=== PATIENT | female | born 1965 | race African-American/Black ===

== ENCOUNTER 2018-01-31 12:54 | Emergency (ER) | payer OTHER, MEDICAID ==
[~2018-01-31] VITALS: Ht 157.5 cm; Wt 64.0 kg
[2018-01-31 16:59] LABS: BASOPHILS % 0.3 % (0.0-2.0); EOSINOPHILS % 1.1 % (0.0-5.0); HEMATOCRIT. 43.2 % (36.0-48.0); HEMOGLOBIN. 14.7 g/dL (12.0-16.0); LYMPHOCYTES % 39.3 % (20.0-50.0); MEAN CORPUSCULAR HEMOGLOBIN 29.8 pg (28.0-32.0); MEAN CORPUSCULAR VOLUME 87.8 fL (81.0-99.0); MEAN PLATELET VOLUME 11.3 fl (7.4-10.4); MONOCYTES % 6.9 % (2.0-8.0); NEUTROPHILS % 52.4 % (40.0-76.0); PLATELET 126 x1000/uL (130-400); RED BLOOD CELL COUNT 4.92 mill/uL (4.2-5.4); RED CELL DISTRIBUTION WIDTH 13.1 % (11.6-14.6)
[2018-01-31 17:01] LABS: CHLORIDE 104 mEq/L (98-107)
[2018-01-31 18:35] VITALS: BP 160/81
== END 2018-01-31 18:37 | disposition home or self-care (01) ==
LOC: ER 12:54
DX: R51 Headache (principal); I10 Essential (primary) hypertension; F17.200 Nicotine dependence, unspecified, uncomplicated
CPT/HCPCS: 36415; 70450; 71045; 80053; 83690; 84443; 84484; 85025; 99285

== ENCOUNTER 2021-08-05 09:24 | Emergency (ER) | payer MEDICAID, OTHER ==
[~2021-08-05] VITALS: Ht 157.5 cm; Wt 66.0 kg
[2021-08-05] MEDS ORDERED: ONDANSETRON HCL 4MG/2ML INJ IV STA (09:58)
[2021-08-05] MEDS ORDERED: KETOROLAC 30MG/ML VIAL IV STA (09:58)
[2021-08-05] MEDS ORDERED: SODIUM CHLORIDE 0.9% 1,000 ML IV ONE (10:00)
[2021-08-05 11:02] LABS: CLARITY URINE CLEAR (CLEAR); COLOR URINE YELLOW (YELLOW); KETONES URINE NEGATIVE (NEGATIVE); LEUKOCYTE ESTERASE URINE NEGATIVE (NEGATIVE); NITRITE URINE NEGATIVE (NEGATIVE); OCCULT BLOOD URINE NEGATIVE (NEGATIVE); PROTEIN URINE NEGATIVE (NEGATIVE); SPECIFIC GRAVITY URINE 1.006 (1.005-1.030); UROBILINOGEN URINE 0.2 E.U./dL (0.2-1.0)
[2021-08-05 11:03] LABS: BASOPHILS % 0.2 % (0.0-2.0); EOSINOPHILS % 0.4 % (0.0-5.0); HEMATOCRIT. 38.5 % (36.0-48.0); HEMOGLOBIN. 13.3 g/dL (12.0-16.0); LYMPHOCYTES % 14.7 % (20.0-50.0); MEAN CORPUSCULAR HEMOGLOBIN 29.6 pg (28.0-32.0); MEAN PLATELET VOLUME 10.9 fl (7.4-10.4); MONOCYTES % 6.7 % (2.0-8.0); PLATELET 125 x1000/uL (130-400); RED BLOOD CELL COUNT 4.48 mill/uL (4.2-5.4); RED CELL DISTRIBUTION WIDTH 12.6 % (11.6-14.6)
[2021-08-05 11:08] LABS: CHLORIDE 107 mEq/L (98-107)
[2021-08-05 12:00] VITALS: BP 132/68
[2021-08-05] MEDS ORDERED: AMPICILLIN SOD/SULBACTAM NA 3 G in SODIUM CHLORIDE 0.9% 100 ML IV STA (12:15)
[2021-08-05] MEDS ORDERED: HYDR-4001 MT (12:33)
[2021-08-05] MEDS ORDERED: AMOX-424 MT (12:33)
[2021-08-05] MEDS ORDERED: IBUP-2028 MT (12:33)
== END 2021-08-05 14:51 | disposition home or self-care (01) ==
LOC: ER 09:24
DX: K57.32 Diverticulitis of large intestine without perforation or abscess without bleeding (principal); D25.9 Leiomyoma of uterus, unspecified; R03.0 Elevated blood-pressure reading, without diagnosis of hypertension
CPT/HCPCS: 36415; 74176; 80053; 81003; 83690; 85025; 96361; 96365; 96375; 99284; J0295; J1885; J2405; J7030; J7050

== ENCOUNTER 2022-12-21 13:36 | Emergency (ER) | payer OTHER ==
[~2022-12-21] VITALS: Ht 157.5 cm; Wt 61.0 kg
[~2022-12-21 13:36] MED LIST: AMOX-424 MT; HYDR-4001 MT; IBUP-2028 MT
[2022-12-21 13:55] VITALS: BP 148/73; PULSE 92; RESP 20; TEMP 98.6; O2SAT 100
[2022-12-21] MEDS ORDERED: KETOROLAC 60MG/2ML VIAL IM STA (15:12)
[2022-12-21] MEDS ORDERED: CEPH500C2 MT (16:45)
[2022-12-21] MEDS ORDERED: CIPR1DRO2 LEFT EAR (16:45)
[2022-12-21] MEDS ORDERED: NAPR-681 PO (16:45)
== END 2022-12-21 17:03 | disposition home or self-care (01) ==
LOC: ER 14:03
DX: H60.92 Unspecified otitis externa, left ear (principal); M75.02 Adhesive capsulitis of left shoulder
CPT/HCPCS: 99283; 73030; 96372; J1885

== ENCOUNTER 2024-08-28 12:56 | Emergency (ER) | payer MEDICAID ==
[~2024-08-28] VITALS: Ht 157.5 cm; Wt 68.0 kg
[~2024-08-28 12:56] MED LIST changes: -AMOX-424 MT; +ASPI-1160 PO; +CIPR-263 MT; -HYDR-4001 MT; -IBUP-2028 MT; +LIP40 PO; +LOSA25TA26 MT
[2024-08-28 13:06] VITALS: O2SAT 97
[2024-08-28] MEDS: ONDANSETRON 4MG ODT PO NR (14:33)
[2024-08-28 15:37] LABS: BASOPHILS % 0.5 % (0.0-2.0); DIFFERENTIAL COMMENT 0; EOSINOPHILS % 1.2 % (0.0-5.0); HEMATOCRIT. 44.7 % (36.0-48.0); HEMOGLOBIN. 14.2 g/dL (12.0-16.0); LYMPHOCYTES % 29.3 % (20.0-50.0); MEAN CORPUSCULAR HEMOGLOBIN 26.8 pg (28.0-32.0); MEAN CORPUSCULAR HGB CONC 31.7 g/dL (31.0-37.0); MEAN CORPUSCULAR VOLUME 84.7 fL (81.0-99.0); MEAN PLATELET VOLUME 12.7 fl (7.4-10.4); PLATELET 136 x1000/uL (130-400); RED BLOOD CELL COUNT 5.28 mill/uL (4.2-5.4); RED CELL DISTRIBUTION WIDTH 13.1 % (11.6-14.6); WHITE BLOOD COUNT 6.6 x1000/uL (4.5-11.0)
[2024-08-28 15:41] LABS: CHLORIDE 99 mEq/L (98-107); POTASSIUM 3.6 mEq/L (3.5-5.1); SODIUM 135 mEq/L (136-145)
[2024-08-28 15:42] LABS: CARBON DIOXIDE 28 mEq/L (21-32)
[2024-08-28 15:43] LABS: CALCIUM 10.5 mg/dL (8.7-10.4)
[2024-08-28 15:47] LABS: CREATININE 0.6 mg/dL (0.6-1.0); GLUCOSE 238 mg/dL (70-105); UREA NITROGEN BLOOD 8 mg/dL (9-23)
[2024-08-28 15:52] LABS: TROPONIN I HIGH SENSITIVITY < 4 ng/L (3.0-34)
[2024-08-28 19:25] LABS: CLARITY URINE CLEAR (CLEAR); COLOR URINE YELLOW (YELLOW); GLUCOSE URINE 3+ (NEGATIVE); KETONES URINE NEGATIVE (NEGATIVE); LEUKOCYTE ESTERASE URINE NEGATIVE (NEGATIVE); NITRITE URINE NEGATIVE (NEGATIVE); OCCULT BLOOD URINE TRACE (NEGATIVE); PROTEIN URINE NEGATIVE (NEGATIVE); SPECIFIC GRAVITY URINE 1.025 (1.005-1.030); UROBILINOGEN URINE 0.2 E.U./dL (0.2-1.0)
[2024-08-28 19:52] LABS: BACTERIA URINE TRACE; SQUAMOUS EPITHELIAL CELL URINE 1+ /lpf (RARE/1+); WBC URINE 0-2 /hpf (0-2)
[2024-08-28 21:24] VITALS: TEMP 36.6
[2024-08-28] MEDS: ONDANSETRON HCL 4MG/2ML INJ IV ONE (21:38)
[2024-08-29] MEDS: IOHEXOL-350 100 ML BOTTLE ONE (00:43)
[2024-08-29 00:53] VITALS: BP 131/66; PULSE 102; RESP 20; O2SAT 98
== END 2024-08-29 00:52 | disposition home or self-care (01) ==
LOC: ER 12:56
DX: R06.02 Shortness of breath (principal); I10 Essential (primary) hypertension; Z79.82 Long term (current) use of aspirin; Z79.899 Other long term (current) drug therapy
CPT/HCPCS: 80048; 81003; 83880; 85025; 85379; 84484; 36415; 71045; 71275; 93005; 96374; 99285; Q9967; Q0162; J2405; Z7610